=== PATIENT | female | born 1945 | race Caucasian/White ===

== ENCOUNTER 2018-08-22 09:31 | Emergency (ER) | payer MEDICARE, OTHER ==
[2018-08-22 09:50] VITALS: BP 177/58
--- NOTE | 2018-08-22 11:05 | XRAY Report ---
Reason: toe pain possible fx 5th toe. Procedure Date: 08/22/2018 Accession Number: [id number] / [id number] Procedure: XR - Foot 3 View RT CPT Code: FULL RESULT: EXAM: RIGHT FOOT RADIOGRAPHY EXAM DATE: 08/22/2018 09:59 AM. CLINICAL HISTORY: Toe pain possible fracture 5th toe. COMPARISON: None. TECHNIQUE: 3 views. FINDINGS: Bones: Bipartite sesamoid. Fracture of the proximal fifth phalanx which laterally does extend to the articular surface of the proximal joint. Joints: Normal. No subluxations. Soft Tissues: Normal. No soft tissue swelling. IMPRESSION: Fifth proximal phalanx fracture with intraarticular extension. RADIA
--- NOTE | 2018-08-22 11:56 | ED Physician Documentation ---
PD HPI LOWER EXT INJURY - Stated complaint Stated Complaint: R TOE INJ - Chief complaint Chief Complaint: Ext Problem - History obtained from History obtained from: Patient - History of Present Illness PD HPI LOW EXT INJURY LOCATION: Right, Toe (5TH) Type of injury: Blunt / blow Where injury occurred: Home Timing - onset: Today Timing - duration: Hours Timing - details: Abrupt onset Pain level max: 5 Pain level now: 5 Improved by: Rest Worsened by: Moving Associated symptoms: Swelling. No: Weakness, Numbness, Tingling Contributing factors: No: Anticoagulated, Prior ortho surgery Similar symptoms before: Has not had sx before Recently seen: Not recently seen - Additional information Additional information: Pt stated was in a hurry getting ready to go camping with her family at the bedside when she accidentally hit her right foot on the wooden bed. Complaining of pain, bruising and swelling of 5th toe. Denies any other associated symptoms. Review of Systems Ten Systems: 10 systems reviewed and negative Constitutional: denies: Myalgias Skin: denies: Abrasion (s), Laceration (s) Musculoskeletal: reports: Extremity pain, Extremity swelling, Pain with weight bearing. denies: Neck pain, Back pain, Joint pain, Joint swelling Neurologic: denies: Generalized weakness, Focal weakness, Numbness PD PAST MEDICAL HISTORY - Past Medical History Past Medical History: No - Present Medications Home Medications: Ambulatory Orders Medication Instructions Recorded Confirmed Acetaminophen/Cod 300/30 [Tylenol 1 each PO Q8HR PRN #6 tablet 08/22/18 #3] - Allergies Allergies/Adverse Reactions: Allergies Allergy/AdvReac Type Severity Reaction Status Date / Time No Known Drug Allergies Allergy Verified 08/22/18 09:50 - Social History Does the pt smoke?: No Smoking Status: Never smoker PD ED PE NORMAL - Vitals Vital signs reviewed: Yes - General General: Alert and oriented X 3, No acute distress, Well developed/nourished - Neck Neck: Supple, no meningeal sign, No bony TTP - Cardiac Cardiac: Strong equal pulses - Respiratory Respiratory: No respiratory distress - Back Back: No CVA TTP, No spinal TTP - Derm Derm: Warm and dry - Extremities Extremities: No deformity, No edema, No calf tenderness / cord, Other (right foot mildly swollen at forefoot lateral aspect. 5th digit with bruising on top and plantar aspect and mildly swollen. Sensation intact. Temp normal. Cap refill <2 . DP, PP +2) - Neuro Neuro: Alert and oriented X 3 - Psych Psych: Normal mood, Normal affect Results - Vitals Vitals: Vital Signs - 24 hr 08/22/18 09:47 Temperature 35.7 C L Heart Rate 80 Respiratory 16 Rate Blood Pressure 177/58 H O2 Saturation 96 Oxygen O2 Source Room air PD MEDICAL DECISION MAKING - ED course Complexity details: considered differential (fracture, dislocation, sprain, contusion), d/w patient (Pt and family informed of xray results. Pt agreed to rodrigo taping and ortho shoe. Will take OTC tylenol. Elevate leg. Iced pack today. Daughter wants tylenol #3 for pt as they are going camping for 3 days. ), d/w family Departure - Departure Disposition: 01 Home, Self Care Clinical Impression: Toe fracture, right Qualifiers: Encounter type: initial encounter Toe: lesser toe Fracture type: closed Phal anx: proximal Fracture alignment: nondisplaced Qualified Code(s): S92.514A - Nondisplaced fracture of proximal phalanx of right lesser toe(s), initial encounter for closed fracture Condition: Good Instructions: ED Fx Foot Follow-Up: Octavia Verdugo DO [Primary Care Provider] - Within 3 Days Prescriptions: Acetaminophen/Cod 300/30 [Tylenol #3] 1 each PO Q8HR PRN #6 tablet PRN Reason: Pain Comments: KEEP THE RODRIGO TOES. USE THE ORTHO SHOE. ELEVATE LEG. ICE PACK TODAY. OTC TYLENOL FOR PAIN. IF SEVERE TAKE THE PRESCRIBED TYLENOL #3 BUT AVOID ALCOHOL, DRIVING AND MAINTAIN SAFETY. FOLLOW UP W/ YOUR PCP AND GET A REFERRAL TO A [facility] OR ORTHOPEDIC DOCTOR. IF WORSE RETURN TO THE E.R. Discharge Date/Time: 08/22/18 12:35
== END 2018-08-22 12:35 | disposition home or self-care (01) ==
LOC: ED 09:31
DX: S92.514A Nondisplaced fracture of proximal phalanx of right lesser toe(s), initial encounter for closed fracture (principal); W22.03XA Walked into furniture, initial encounter; Y92.009 Unspecified place in unspecified non-institutional (private) residence as the place of occurrence of the external cause
CPT/HCPCS: 99283